=== PATIENT | female | born 1945 | race Caucasian/White ===

== ENCOUNTER 2018-07-13 11:39 | Outpatient (CLI) | payer MEDICARE, BC ==
[2015-12-06 11:45] VITALS: O2SAT 98
== END 2018-07-13 11:40 | disposition home or self-care (01) | DRG 552 ==
LOC: CONVCARE 11:39
PROVIDERS: ATTEND Orthopaedic Surgery
DX: M54.5 Low back pain (principal); M25.552 Pain in left hip; M48.061 Spinal stenosis, lumbar region without neurogenic claudication
CPT/HCPCS: 73521